=== PATIENT | female | born 1995 | race Caucasian/White ===

== ENCOUNTER 2022-02-15 16:52 | Emergency (ER) | payer OTHER, SELFPAY ==
[2022-02-15 17:02] VITALS: BP 131/83; PULSE 69; RESP 18; TEMP 36.4; O2SAT 98; BMI 33.0
--- NOTE | 2022-02-15 17:49 | ED_ITS ---
HPI - Abdominal Pain General Time Seen by Provider: 17:30 Date Seen: 02/15/22 Chief Complaint: Abdominal Pain Stated Complaint: Abdominal pain Time Seen by Provider: 02/15/22 16:55 Source: patient History of Present Illness HPI narrative: This 26-year-old female comes in with upper epigastric abdominal pain that began 2 and half days ago. She had some nausea, vomiting, and diarrhea initially. The nausea has persisted along with pain in this area. She does not report any fevers. There is no blood in the toilet. Prior to this she was in good health. She has had her appendix removed. She has been able to take liquids but does not care to take food. Related Data Previous Rx's Medication Instructions Recorded pantoprazole 20 mg tablet,delayed 20 mg PO DAILY #20 tab 02/15/22 release (Protonix) Allergies Allergy/AdvReac Type Severity Reaction Status Date / Time No Known Drug Allergies Allergy Verified 02/15/22 17:18 Review of Systems Status of ROS Reports: 10 or more systems reviewed and unremarkable except as noted in History and below Narrative Constitutional: No fevers, no weight gain or loss. Eyes: No discharge. No vision changes. HENT: No congestion, no sore throat, no ear pain. Cardiovascular: No chest pain, no palpitations. Respiratory: No shortness of breath, no wheezes, no cough. Gastrointestinal: Abdominal pain with nausea, vomiting, and diarrhea as described above. Genitourinary: No dysuria, no hematuria. Musculoskeletal: Normal range of motion. Skin: No rashes, no pruritis. Neurological: No dizziness, weakness, sensory change, speech change. Endo/Heme/Allergies: No bruising or bleeding. No polydipsia. Pysch: no suicidality, no anxiety, no insomnia. All other systems reviewed and are negative. [facility] Medical History No significant past medical history Surgical History (Updated 02/15/22 @ 17:21 by Sonia Marcial RN) History of appendectomy Social History Smoking Status: Never smoker Do you use any of these nicotine containing products: None Second hand tobacco smoke exposure: No How often do you have a drink containing alcohol: monthly or less How many standard drinks containing alcohol do you have on a typical day: 1 or 2 How often do you have six or more drinks on one occasion: Never AUDIT-C Alcohol total score: 1 Non-prescribed substance use: denies use service: No Exam Narrative: Exam Narrative: Constitutional: Well-developed, well-nourished, no acute distress. HEENT: Normocephalic, atraumatic. Neck: Normal range of motion. Nontender. Supple. Heart: Regular. No murmurs. Normal rate. Intact distal pulses. Lungs: Clear to auscultation. No chest discomfort. No wheezes, rhonchi, or rales. Abdomen: Normal bowel sounds. Diffuse tenderness in the upper abdomen. No rebound tenderness. Genitalia: Deferred. Back: No midline tenderness. Normal range of motion. Extremities: Normal range of motion. No injury. Skin: Intact. No rash. Warm. No erythema or pallor. Neurologic: No altered sensation. No weakness. Alert and oriented. Psychiatric: No suicidality. No anxiety or depression. No insomnia. Nursing notes and vitals signs are reviewed. Const: Vital Signs, click to edit/add: Vital Signs - 24 hr 02/15/22 17:02 02/15/22 18:52 Temperature 97.6 F Pulse Rate [Pulse Oximeter] 69 57 L Respiratory Rate 18 18 Blood Pressure [Le ft Upper Arm] 131/83 136/80 Pulse Oximetry 98 100 Course Vital Signs Vital signs: Initial Vital Signs Temperature 97.6 F 02/15/22 17:02 Temperature Source Temporal Artery Scan 02/15/22 17:02 Pulse Rate 69 02/15/22 17:02 Pulse Rhythm 02/15/22 17:02 Respiratory Rate 18 02/15/22 17:02 Blood Pressure 131/83 02/15/22 17:02 Blood Pressure Mean 99 02/15/22 17:02 Blood Pressure Position Supine 02/15/22 17:02 Pulse Oximetry 98 02/15/22 17:02 Oxygen Delivery Method 02/15/22 17:02 Vital Signs Temperature 97.6 F 02/15/22 17:02 Pulse Rate 69 02/15/22 17:02 Respiratory Rate 18 02/15/22 17:02 Blood Pressure 131/83 02/15/22 17:02 Pulse Oximetry 98 02/15/22 17:02 Temperature 97.6 F 02/15/22 17:02 Pulse Rate 57 L 02/15/22 18:52 Respiratory Rate 18 02/15/22 18:52 Blood Pressure 136/80 02/15/22 18:52 Pulse Oximetry 100 02/15/22 18:52 MDM - Abdominal Pain MDM Narrative Medical decision making narrative: This patient comes in with upper epigastric abdominal pain as described above. Her exam is rather reassuring as are her vital signs. It seems that she may chaudhari ve some prolonged symptoms from a gastroenteritis. An IV was established where she received a L of normal saline and 4 mg of Zofran. Later she received a GI cocktail which brought rather immediate relief to most of her symptoms. She also received 30 mg of Toradol intravenously. Lab results returned completely normal. Additionally I used bedside ultrasound to evaluate her upper abdomen. This also yielded normal findings. The patient is okay to return home. She received prescriptions for Zofran, Protonix, and Toradol. Lab Data Attestation: I reviewed the patient's lab results. Labs: Lab Results 02/15/22 02/15/22 Range/Units 18:05 18:05 WBC 8.99 (4.50-11.00) K/uL RBC 4.72 (4.00-5.20) m/uL Hgb 13.3 (12.0-16.0) gm/dL Hct 41.0 (33.0-51.0) % MCV 87 (80-100) fL MCH 28 (26-34) pg MCHC 32 (32-36) gm/dL RDW Coeff of Donna 12.9 (11.5-15.5) % Plt Count 232 (140-440) K/uL Neut % (Auto) 64.6 (42.0-72.0) % Lymph % (Auto) 23.9 (20-44) % Leake % (Auto) 7.8 (0.0-11.0) % Eos % (Auto) 3.1 (0.0-7.0) % Baso % (Auto) 0.4 (0.0-3.0) % Neut # (Auto) 5.80 (1.7-7.0) K/uL Lymph # (Auto) 2.15 (0.90-2.90) K/uL Leake # (Auto) 0.70 (0.00-0.90) K/UL Eos # (Auto) 0.28 (0.00-0.50) K/uL Baso # (Auto) 0.04 (0.00-0.30) K/uL Abs Immat Gran (auto) 0.02 (0.00-0.30) K/uL Sodium 140 (135-149) mmol/L Potassium 4.1 (3.6-5.1) mmol/L Chloride 105 (96-114) mmol/L Carbon Dioxide 26 (20-32) mmol/L BUN 14 (5-24) mg/dL Creatinine 1.0 (0.5-1.5) mg/dL Estimated Creat Clear 93.81 Glucose 91 (60-115) mg/dL Calcium 9.3 (8.4-10.6) mg/dL Lipase 145 (23-300) U/L Discharge Plan Discharge Clinical Impression: Gastroenteritis Patient Disposition: Home, Self-Care Condition: Improved Instructions: Gastroenteritis (ED) Additional Instructions: Upper epigastric abdominal pain. Gastroenteritis. Take medication as prescr ibed and needed. Follow up with MD or return if worsening. Activity Level: Activity as Tolerated Prescriptions: New pantoprazole [Protonix] 20 mg tablet,delayed release (DR/EC) 20 mg PO DAILY Qty: 20 2RF Follow Up/Referrals: Provider,Not a Local [Primary Care Provider] - Stand Alone Forms: MyHealth Info Instructions Procedures Ultrasound Other exam #1: Anatomical areas examined: Abdomen right upper quadrant Indications: abdominal pain Exam type: focused emergency ultrasound Description/findings: normal appearing gallbladder, liver, kidneys, and aorta. Impression: No acute findings. Normal images of abdomen.
[2022-02-15 18:17] LABS: Basophils Absolute Auto 0.04 K/uL (0.00-0.30); Basophils Percent Auto 0.4 % (0.0-3.0); Eosinophils Absolute Auto 0.28 K/uL (0.00-0.50); Eosinophils Percent Auto 3.1 % (0.0-7.0); Hemoglobin* 13.3 gm/dL (12.0-16.0); Immature Granulocytes Abs Auto 0.02 K/uL (0.00-0.30); Lymphocytes Absolute Auto 2.15 K/uL (0.90-2.90); Lymphocytes Percent Auto 23.9 % (20-44); Mean Corpuscular HGB Conc 32 gm/dL (32-36); Mean Corpuscular Hemoglobin 28 pg (26-34); Mean Corpuscular Volume 87 fL (80-100); Monocytes Percent Auto 7.8 % (0.0-11.0); Neutrophils Percent Auto 64.6 % (42.0-72.0); Platelet Count* 232 K/uL (140-440); RDW Coefficient of Variation % 12.9 % (11.5-15.5); Red Blood Count 4.72 m/uL (4.00-5.20); White Blood Count* 8.99 K/uL (4.50-11.00)
[2022-02-15 18:29] LABS: Chloride* 105 mmol/L (96-114); Potassium* 4.1 mmol/L (3.6-5.1); Sodium* 140 mmol/L (135-149)
[2022-02-15 18:32] LABS: Blood Urea Nitrogen* 14 mg/dL (5-24); Carbon Dioxide* 26 mmol/L (20-32); Est. Creatinine Clearance* 93.81; Estimated Glomerular Filt Rate 80.68; Glucose* 91 mg/dL (60-115); Lipase* 145 U/L (23-300)
[2022-02-15 18:33] LABS: Calcium* 9.3 mg/dL (8.4-10.6)
[2022-02-15] MEDS: 0.9 % SODIUM CHLORIDE 1000 ml 1,000 ML IV (18:43)
[2022-02-15] MEDS: ONDANSETRON 2 MG/ML inj 4 MG IVP (18:45)
[2022-02-15] MEDS: GI COCKTAIL (VISC LIDO/ANTACID) 30 ML PO (18:45)
[2022-02-15] MEDS: KETOROLAC 30 MG/ML inj IVP (18:47)
[2022-02-15 18:52] VITALS: BP 136/80; PULSE 57; RESP 18; O2SAT 100
[2022-02-16 05:27] LABS: Slide Review Reflex No
== END 2022-02-15 20:00 | disposition home or self-care (01) ==
PROVIDERS: Emergency Provider Emergency Medicine Emergency Medical Services
DX: K52.9 Noninfective gastroenteritis and colitis, unspecified (principal)
CPT/HCPCS: 96374; 96375; 36415; 80048; 83690; 85025; 99284; A9270; J1885; J2405; J7030

== ENCOUNTER 2022-02-18 06:49 | Emergency (ER) | payer OTHER, SELFPAY ==
[2022-02-18 06:56] VITALS: BP 137/89; PULSE 61; RESP 18; TEMP 36.6; O2SAT 98; BMI 33.0
--- NOTE | 2022-02-18 07:10 | CRLHL7_ITS ---
For Patients: As a result of the Century Cures Act, medical imaging exams and procedure reports are released immediately into your electronic medical record. You may view this report before your referring provider. If you have questions, please contact your health care provider. Indication: Diffuse abdominal Pain Technique: Volumetric multidetector CT images of the abdomen and pelvis were obtained after the administration of intravenous contrast. 95 cc Isovue 370 low osmolar intravenous contrast Comparison: CT abdomen and pelvis January 30, 2013 Findings: The lung bases are clear. Sub centimeter hypodensities within the liver are appreciated, too small to characterize. Otherwise, the liver is unremarkable. The portal vein is patent. The gallbladder is unremarkable without evidence of radiopaque calculus. There is no significant common biliary ductal dilatation or abrupt cut off. The spleen is normal in enhancement and size. There is mild thickening of the gastric antrum commensurate with chronic gastritis change. The pancreas is normal in enhancement without significant atrophy. The adrenal glands are unremarkable. Nonobstructive calculi are appreciated within the collecting system. Otherwise, preserved corticomedullary differentiation. There is moderate stool seen throughout the colon with minimal colonic diverticulosis without definite evidence CIS diverticulitis. The appendix is surgically absent. There is no significant mesenteric, retroperitoneal, or pelvic sidewall lymph nodes. The aorta is nonaneurysmal. There is no significant atherosclerotic disease appreciated. The solid pelvic viscera are grossly unremarkable. There is no free fluid or free air. The anterior abdominal wall is intact without significant hernias. The lumbar vertebral body heights are grossly maintained in satisfactory alignment without evidence of displaced fracture, lytic or blastic lesion. Impression: Prior appendectomy. Mild chronic gastritis changes of the stomach. Nephrolithiasis without evidence of distal obstructive uropathy. Moderate stool seen throughout the colon with distal colonic diverticulosis. Please note that all CT scans at this facility use dose modulation, iterative reconstruction, and/or weight-based dosing when appropriate to reduce radiation dose to as low as reasonably achievable. Dictated by Errol Amado MD @ 02/18/2022 8:29:21 AM (Electronically Signed)
--- NOTE | 2022-02-18 07:14 | ED.ABDPAIN ---
HPI - Abdominal Pain General Chief Complaint: Abdominal Pain Stated Complaint: abdominal pain/nausea Time Seen by Provider: 02/18/22 06:51 History of Present Illness HPI narrative: Patient is a 26-year-old woman who comes in today with diffuse abdominal pain for the last several days. Pain is again diffuse but seems to be localized to the mid epigastrium. She has had nausea and vomiting be no change in her bowel movements. She has had no fevers no chills. Patient has had no night sweats or blood in her stool. Patient was seen several days ago here at the emergency room where workup including electrolytes and CBC as well as bedside ultrasound were unremarkable. Patient's symptoms improved with a GI cocktail. Patient states at this time the pain is persisting and appears to be worsening. Patient states that she is not sexually active. Related Data Home Medications Medication Instructions Recorded Confirmed Toradol 02/18/22 Zofran ODT 02/18/22 Previous Rx's Medication Instructions Recorded pantoprazole 20 mg tablet,delayed 20 mg PO DAILY #20 tab 02/15/22 release (Protonix) Allergies Allergy/AdvReac Type Severity Reaction Status Date / Time No Known Drug Allergies Allergy Verified 02/15/22 17:18 Review of Systems Status of ROS Reports: 10 or more systems reviewed and unremarkable except as noted in History and below [facility] Medical History No significant past medical history Surgical History History of appendectomy Social History Smoking Status: Never smoker Do you use any of these nicotine containing products: None Second hand tobacco smoke exposure: No How often do you have a drink containing alcohol: monthly or less How many standard drinks containing alcohol do you have on a typical day: 1 or 2 How often do you have six or more drinks on one occasion: Never AUDIT-C Alcohol total score: 1 Non-prescribed substance use: denies use service: No Exam Narrative: Exam Narrative: EXAM GENERAL: Patient appears comfortable and well. THYROID: no thyroid nodules or thyromegaly. LYMPH: No supraclavicular or cervical lymphadenopathy. SKIN: Visible skin seen during exam normal or with benign process only. EXT: No dependent lower extremity pedal edema. HEART: Regular rate and rhythm with no murmurs, rubs, or gallops. LUNGS: Clear to auscultation bilaterally with no crackles or wheezes. ABD: Soft, non tender, non distended. PSYCH: Good eye contact, speech is not pressured. Const: Vital Signs, click to edit/add: Vital Signs - 24 hr 02/18/22 06:56 Temperature 97.8 F Pulse Rate [Left P ulse Oximeter] 61 Respiratory Rate 18 Blood Pressure [Ri ght Upper Arm] 137/89 Pulse Oximetry 98 Course Course Hospital Course: Patient seen examined. CBC comprehensive metabolic panel amylase UA and CT of the abdomen pelvis ordered. 1 L of normal saline, 30 mg of Toradol and 4 mg of Zofran given. Results pending. Case handed off to Dr. Rubalcava. Vital Signs Vital signs: Initial Vital Signs Temperature 97.8 F 02/18/22 06:56 Temperature Source Temporal Artery Scan 02/18/22 06:56 Pulse Rate 61 02/18/22 06:56 Respiratory Rate 18 02/18/22 06:56 Blood Pressure 137/89 02/18/22 06:56 Blood Pressure Mean 105 02/18/22 06:56 Blood Pressure Position Sitting 02/18/22 06:56 Pulse Oximetry 98 02/18/22 06:56 Oxygen Delivery Method 02/18/22 06:56 Vital Signs Temperature 97.8 F 02/18/22 06:56 Pulse Rate 61 02/18/22 06:56 Respiratory Rate 18 02/18/22 06:56 Blood Pressure 137/89 02/18/22 06:56 Pulse Oximetry 98 02/18/22 06:56 Temperature 97.8 F 02/18/22 06:56 Pulse Rate 61 02/18/22 06:56 Respiratory Rate 18 02/18/22 06:56 Blood Pressure 137/89 02/18/22 06:56 Pulse Oximetry 98 02/18/22 06:56 MDM - Abdominal Pain Lab Data Labs: Lab Results 02/18/22 Range/Units 07:32 WBC 8.85 (4.50-11.00) K/uL RBC 5.08 (4.00-5.20) m/uL Hgb 14.3 (12.0-16.0) gm/dL Hct 43.5 (33.0-51.0) % MCV 86 (80-100) fL MCH 28 (26-34) pg MCHC 33 (32-36) gm/dL RDW Coeff of Donna 12.6 (11.5-15.5) % Plt Count 367 (140-440) K/uL Neut % (Auto) 74.2 H (42.0-72.0) % Lymph % (Auto) 18.4 L (20-44) % Butler % (Auto) 5.4 (0.0-11.0) % Eos % (Auto) 1.6 (0.0-7.0) % Baso % (Auto) 0.3 (0.0-3.0) % Neut # (Auto) 6.60 (1.7-7.0) K/uL Lymph # (Auto) 1.60 (0.90-2.90) K/uL Butler # (Auto) 0.50 (0.00-0.90) K/UL Eos # (Auto) 0.14 (0.00-0.50) K/uL Baso # (Auto) 0.03 (0.00-0.30) K/uL Abs Immat Gran (auto) 0.01 (0.00-0.30) K/uL Discharge Plan Discharge Prescriptions: No Action pantoprazole [Protonix] 20 mg tablet,delayed release (DR/EC) 20 mg PO DAILY Qty: 20 2RF Toradol 0RF Zofran ODT 0RF Rx Instructions: q8hr prn Follow Up/Referrals: Provider,Not a Local [Primary Care Provider] -
[2022-02-18] MEDS: 0.9 % SODIUM CHLORIDE 1000 ml 1,000 ML IV (07:40)
[2022-02-18] MEDS: ONDANSETRON 2 MG/ML inj 4 MG IVP (07:41)
[2022-02-18] MEDS: KETOROLAC 30 MG/ML inj IVP (07:43)
[2022-02-18 07:44] LABS: Basophils Absolute Auto 0.03 K/uL (0.00-0.30); Basophils Percent Auto 0.3 % (0.0-3.0); Eosinophils Absolute Auto 0.14 K/uL (0.00-0.50); Eosinophils Percent Auto 1.6 % (0.0-7.0); Hematocrit 43.5 % (33.0-51.0); Hemoglobin* 14.3 gm/dL (12.0-16.0); Immature Granulocytes Abs Auto 0.01 K/uL (0.00-0.30); Lymphocytes Percent Auto 18.4 % (20-44); Mean Corpuscular HGB Conc 33 gm/dL (32-36); Mean Corpuscular Hemoglobin 28 pg (26-34); Mean Corpuscular Volume 86 fL (80-100); Monocytes Percent Auto 5.4 % (0.0-11.0); Neutrophils Percent Auto 74.2 % (42.0-72.0); Platelet Count* 367 K/uL (140-440); RDW Coefficient of Variation % 12.6 % (11.5-15.5); Red Blood Count 5.08 m/uL (4.00-5.20); White Blood Count* 8.85 K/uL (4.50-11.00)
[2022-02-18 07:47] LABS: Appearance Urine Clear (Clear); Bilirubin Urine Negative (Negative); Blood Urine Negative (Negative); Color Urine Yellow (Yellow); Glucose Urine Negative (Negative); Ketones Urine Negative (Negative); Leukocyte Esterase Urine Negative (Negative); Nitrite Urine Negative (Negative); Protein Urine Negative (Negative); Urobilinogen Urine 0.2 (0.2-1.0)
[2022-02-18 07:56] LABS: Slide Review Reflex No
[2022-02-18 07:58] LABS: Chloride* 104 mmol/L (96-114)
[2022-02-18 07:59] LABS: Albumin* 4.9 g/dL (3.3-5.0); Potassium* 4.1 mmol/L (3.6-5.1); Sodium* 141 mmol/L (135-149)
[2022-02-18 08:01] LABS: Amylase* 96 U/L (18-89); Bilirubin Total* 0.6 mg/dL (0.1-1.5); Creatinine* 1.2 mg/dL (0.5-1.5); Est. Creatinine Clearance* 78.17; Estimated Glomerular Filt Rate 64.83
[2022-02-18 08:02] LABS: Alanine Aminotransferase* 19 U/L (4-35); Alkaline Phosphatase* 63 U/L (40-150); Aspartate Amino Transferase* 26 U/L (12-35); Blood Urea Nitrogen* 9 mg/dL (5-24); Calcium* 9.4 mg/dL (8.4-10.6); Carbon Dioxide* 29 mmol/L (20-32); Glucose* 104 mg/dL (60-115)
[2022-02-18 08:25] LABS: Ur HCG Qualitative* Negative (Negative)
[2022-02-18 09:27] VITALS: RESP 18; TEMP 36.6
== END 2022-02-18 09:28 | disposition home or self-care (01) ==
PROVIDERS: Emergency Medicine; Emergency Provider Internal Medicine
DX: R10.9 Unspecified abdominal pain (principal); R11.2 Nausea with vomiting, unspecified
CPT/HCPCS: 10005; 36415; 74177; 80053; 81003; 81025; 82150; 85025; 96374; 96375; 99283; 99284; J1885; J2405; J7030; Q9967